=== PATIENT | female | born 1990 | race Caucasian/White ===

== ENCOUNTER 2018-07-05 10:04 | Outpatient (CLI) | payer BC ==
--- NOTE | 2018-07-05 09:55 | NUR ---
pt ambulated to WS per direct admit by . pt weighed, gowned and assisted to bed. vs taken. POC reviewed with pt and . states understanding.
[~2018-07-05 10:04] MED LIST: ALBU8.5H2 IH; BENZ200C25 PO; CEPH500C PO; ONDN4T PO; PRD5T PO; VALA100033 PO
[2018-07-05] MEDS ORDERED: ONDANSETRON 4 MG/2 ML (SDV) Z0FRAN IVP ONE (10:15)
[2018-07-05 10:30] VITALS: BP 135/96
[2018-07-05] MEDS: D5 LR IV SOLUTION 1,000 ML IV SCH ×2 (10:40→12:53)
--- NOTE | 2018-07-05 10:40 | NUR ---
#20g IV to Rt.wrist x2 attempts by this RN. site patent, secured with opsite. D5LR @ 500cc/hr infusing via IV pump.
--- NOTE | 2018-07-05 10:43 | NUR ---
emesis basin @ side. pt requesting sprite to drink. reports emesis on admission. ice chips given. Zofran 12mg IV given.
[2018-07-05 10:58] LABS: BASOPHILS % (AUTO) 0 % (0-10); EOSINOPHILS # (AUTO) 0.1 10^3/uL (0.0-0.3); EOSINOPHILS % (AUTO) 1 % (0-10); HEMATOCRIT 40 % (35-52); HEMOGLOBIN 13.6 G/DL (11.5-16.0); LYMPHOCYTES # (AUTO) 2.3 X 10^3 (1.0-4.0); LYMPHOCYTES % (AUTO) 22 % (12-44); MEAN CORPUSCULAR HEMOGLOBIN 30 PG (25-34); MEAN CORPUSCULAR HGB CONC 34 G/DL (32-36); MEAN CORPUSCULAR VOLUME 90 FL (80-99); MEAN PLATELET VOLUME 10.5 FL (7.4-10.4); MONOCYTES # (AUTO) 0.8 X 10^3 (0.0-1.0); MONOCYTES % (AUTO) 8 % (0-12); NEUTROPHILS % (AUTO) 68 % (42-75); PLATELET COUNT 226 10^3/uL (130-400); RED CELL DISTRIBUTION WIDTH 12.8 % (10.0-14.5); WHITE BLOOD COUNT 10.2 10^3/uL (4.3-11.0)
[2018-07-05 11:10] VITALS: BP 122/76
--- NOTE | 2018-07-05 11:16 | NUR ---
warm blanket given to pt. c/o pain @ IV site. will cont to monitor.
[2018-07-05 11:18] LABS: ALANINE AMINOTRANSFERASE 16 U/L (0-55); ALBUMIN 3.9 GM/DL (3.2-4.5); ALKALINE PHOSPHATASE 41 U/L (40-136); BILIRUBIN,TOTAL 0.4 MG/DL (0.1-1.0); BUN/CREATININE RATIO 12; CALCIUM 9.4 MG/DL (8.5-10.1); CARBON DIOXIDE 19 MMOL/L (21-32); CHLORIDE 108 MMOL/L (98-107); GFR ESTIMATED > 60; GLUCOSE 84 MG/DL (70-105); POTASSIUM 3.9 MMOL/L (3.6-5.0); SODIUM 136 MMOL/L (135-145); TOTAL PROTEIN 6.7 GM/DL (6.4-8.2)
--- NOTE | 2018-07-05 11:24 | NUR ---
was called. message left with office staff.
--- NOTE | 2018-07-05 12:00 | NUR ---
returned phone call. labs given. pt may dismiss to home when stable.
--- NOTE | 2018-07-05 12:47 | NUR ---
2nd bag of D5LR infusing via IV pump. pt reports "not as nauseated". will cont to monitor.
--- NOTE | 2018-07-05 13:50 | NUR ---
up to BR. 50% bland diet consumed.
[2018-07-05] MEDS ORDERED: PREN1TAB79 PO (13:54)
--- NOTE | 2018-07-05 14:08 | NUR ---
dismissal instructions given. instructed pt to eat small, frequent meals, and increase oral intake. follow up with as scheduled or prn. signature page signed, placed on chart. Addendum: 07/05/18 at 1436 by JOCELYNE VILLARREAL RN IV site [place]
--- NOTE | 2018-07-05 14:20 | NUR ---
pt ambulated to private vehicle with s/o @ side. pt stable with no sx's of distress noted.
== END 2018-07-05 14:20 | disposition home or self-care (01) ==
LOC: LDRP 10:04 → WSo 10:04
PROVIDERS: ATTEND Obstetrics & Gynecology
DX: O99.89 Other specified diseases and conditions complicating pregnancy, childbirth and the puerperium (principal); E86.0 Dehydration; Z3A.01 Less than 8 weeks gestation of pregnancy
CPT/HCPCS: 36415; 80053; 85025; 96361; 96374

== ENCOUNTER 2018-07-09 10:21 | Emergency (ER) | payer BC ==
[~2018-07-09] VITALS: Ht 154.9 cm; Wt 50.8 kg
[~2018-07-09 10:21] MED LIST changes: +PREN1TAB79 PO
--- OUTSIDE RECORDS SUMMARY | 2018-07-09 10:25 | XMS REPORT ---
Author MERCY Reyez [facility] eClinicalWorks Address Unknown Phone Unavailable Care Team Providers Care Wet Process Assistant Head Miller Name Role Phone MERCY OTERO CP Unavailable Allergies, Adverse Reactions, Alerts Substance Reaction Event Type N.K.D.A. Info Not Available Non Drug Allergy Problems Problem Type Condition Code Onset Dates Condition Status Assessment Mild intermittent asthma without complication J45.20 Active Problem Abdominal pain, unspecified site 789.00 Active Assessment Encounter for control pills maintenance Z30.41 Active Problem Encounter for control pills maintenance Z30.41 Active Problem Health examination in population survey V70.6 Active Problem Mild intermittent asthma without complication J45.20 Active Problem General counseling for prescription of oral contraceptives V25.01 Active Problem Unspecified backache 724.5 Active Problem control counseling V25.09 Active Problem Asthma 493.90 Active Medications Medication Code System Code Instructions Start Date End Date Status Dosage Microgestin 06/18 [facility] [id number] 1-20 MG-MCG Orally Once a day 1 tablet ProAir HFA [facility] [address]-05 108 (90 Base) MCG/ACT Inhalation 4 times a day 2 puffs as needed Procedures Procedure Coding System Code Date Preventive Care Est Pt. Age 18-39 CPT-4 85811 Mar 23, 2016 Vital Signs Date/Time: Mar 23, 2016 Cardiac Monitoring Heart Rate 80 bpm Weight 108 lbs Height 61 in BMI 20.40 Index Blood Pressure Diastolic 68 mmHg Blood Pressure Systolic 112 mmHg Results No Known Results Summary Purpose eClinicalWorks Submission
--- OUTSIDE RECORDS SUMMARY | 2018-07-09 10:25 | XMS REPORT ---
Author MERCY Reyez Organization eClinicalWorks Address Unknown Phone Unavailable Care Team Providers Care Rd Manager Name Role Phone MERCY OTERO CP Unavailable Allergies No Known Allergies Problems Problem Type Condition Code Onset Dates Condition Status Problem Abdominal pain, unspecified site 789.00 Active Problem Encounter for control pills maintenance Z30.41 Active Problem Health examination in population survey V70.6 Active Problem Mild intermittent asthma without complication J45.20 Active Problem General counseling for prescription of oral contraceptives V25.01 Active Problem Unspecified backache 724.5 Active Problem control counseling V25.09 Active Problem Asthma 493.90 Active Medications No Known Medications Results No Known Results Summary Purpose eClinicalWorks Submission
--- NOTE | 2018-07-09 11:18 | ED Cough/URI ---
General Chief Complaint: Cough/Cold/Flu Symptoms Stated Complaint: COUGHING UP BLOOD Nursing Triage Note: PT STATES SHE HAS BEEN COUGHING FOR 24H AND VOMITTING THE LAST TWO WEEKS R/T AND STATES AFTER COUGHING SHE HAS "SPIT UP BLOOD". Sepsis Screen: No Definite Risk Source: patient Exam Limitations: no limitations History of Present Illness Date Seen by Provider: Jul 09, 2018 Time Seen by Provider: 11:13 Initial Comments To ER with hemoptysis since this morning. She states that she has a cough that is productive of sputum and is sometimes blood-tinged. She denies any fevers or chills. She is , has had quite a bit of nausea and vomiting with this and saw Dr. Davis earlier last week and was admitted briefly to the hospital for some IV fluids. She is taking Dramamine and vitamin D 6 at home and has noticed some improvement in her nausea. However she's had a productive cough for a couple of days along. This morning when it became bloody. She denies any shortness of breath. She denies any swelling to either lower extremity. Timing/Duration: intermittent Severity/Quality: productive cough Associated Symptoms: cough Allergies and Home Medications Allergies Coded Allergies: No Known Drug Allergies (Unverified , 10/15/10) Home Medications Acetaminophen with Codeine 1 Each Tablet, 1 EACH PO Q8H PRN for COUGH Prescribed by: CONI OLMEDO on 07/09/18 1119 Cefuroxime Axetil 250 Mg Tablet, 250 MG PO BID Prescribed by: CONI OLMEDO on 07/09/18 1119 Vit W-Ca,Fe,FA(<1 mg) 1 Each Tablet, 1 EACH PO DAILY, (Reported) Patient Home Medication List Home Medication List Reviewed: Yes Review of Systems Review of Systems Constitutional: see HPI EENTM: see HPI Respiratory: see HPI, cough; No dyspnea on exertion; hemoptysis; No short of breath Cardiovascular: no symptoms reported Genitourinary: no symptoms reported Musculoskeletal: no symptoms reported Skin: no symptoms reported Psychiatric/Neurological: No Symptoms Reported Hematologic/Lymphatic: No Symptoms Reported Past Tevtshy-Pwoyoc-Nrzzdh Hx Patient Social History Alcohol Use: Denies Use Recreational Drug Use: No Smoking Status: Never a Smoker Recent Foreign Travel: No Contact w/Someone Who Travel: No Recent Infectious Disease Expo: No Recent Hopitalizations: No Seasonal Allergies Seasonal Allergies: No Past Medical History Surgeries: Yes Tonsillectomy Respiratory: Yes Asthma Cardiac: No Neurological: Yes (BELLS PALSY) : Yes Last Menstrual Period: May 18, 2018 Genitourinary: No Gastrointestinal: No Musculoskeletal: No Endocrine: No Cancer: No Psychosocial: No Integumentary: No Blood Disorders: No Physical Exam Vital Signs - First Documented 07/09/18 10:48 Temp 97.0 Pulse 88 Resp 17 B/P (MAP) 140/96 (111) O2 Delivery Room Air Capillary Refill : Less Than 3 Seconds Height: 5'1" Weight: 112lbs. oz. 50.229927pv; 18.14 BMI Method:Stated General Appearance: WD/WN, no apparent distress, other (her oxygen saturation is 100% on room air, her heart rate is 87. She denies any shortness of breath or swelling in either lower extremity. I do not have concerns of PE based on clinical exam/history.) HEENT: PERRL/EOMI, normal ENT inspection Respiratory: normal breath sounds, no respiratory distress, no accessory muscle use Cardiovascular: regular rate, rhythm, no murmur Gastrointestinal: normal bowel sounds, non tender, soft Extremities: normal range of motion, non-tender Neurologic/Psychiatric: alert, normal mood/affect, oriented x 3 Skin: normal color, warm/dry Progress/Results/Core Measures Suspected Sepsis Recent Fever Within 48 Hours: No Infection Criteria Present: Suspected New Infection New/Unexplained Altered Menta: No Sepsis Screen: No Definite Risk SIRS Temperature:97.0 Pulse: 88 Respiratory Rate: 17 Blood Pressure 140 /96 Mean: 111 Results/Orders My Orders Orders - CONI OLMEDO APRN Chest Pa/Lat (2 View) (07/09/18 11:12) Vital Signs/I&O 07/09/18 07/09/18 10:48 10:48 Temp 97.0 Pulse 88 Resp 17 B/P (MAP) 140/96 (111) O2 Delivery Room Air Capillary Refill : Less Than 3 Seconds Blood Pressure Mean: 111 Departure Impression Primary Impression: Bronchitis Disposition: 01 HOME, SELF-CARE Condition: Stable Departure-Patient Inst. Decision time for Depature: 11:17 Referrals: OREN LENTZ MD (PCP/Family) Primary Care Physician Patient Instructions: Acute Bronchitis, Adult (DC) Add. Discharge Instructions: 1. Antibiotics and cough medication as directed. Return to ER for any concerns. Follow-up with Dr. Ryan Lentz later this week for recheck. All discharge instructions reviewed with patient and/or family. Voiced understanding. Scripts Acetaminophen with Codeine (Tylenol with Codeine #3 Tablet) 1 Each Tablet 1 EACH PO Q8H PRN for COUGH, #10 TAB Prov: CONI OLMEDO STEWARD RACETRACK 07/09/18 Cefuroxime Axetil (Cefuroxime) 250 Mg Tablet 250 MG PO BID, #14 TAB Prov: CONI OLMEDO STEWARD RACETRACK 07/09/18 CONI OLMEDO APRN Jul 09, 2018 11:18
[2018-07-09] MEDS ORDERED: ACET-789 PO (11:19)
[2018-07-09] MEDS ORDERED: CEFU250T80 PO (11:19)
--- NOTE | 2018-07-09 11:57 | Diagnostic Imaging Report ---
INDICATION: Hemoptysis. FINDINGS: Lungs are clear. The heart and vessels normal. There is no effusion or pneumothorax. No free air beneath the diaphragms. Cardiomediastinal and hilar contour is normal. No chest wall abnormality. IMPRESSION: Negative. Dictated by: Dictated on workstation # [id number]
[2018-07-09 12:05] VITALS: BP 135/90
== END 2018-07-09 12:06 | disposition home or self-care (01) ==
LOC: EDUNIT# 10:21 → ER 10:22
DX: O99.519 Diseases of the respiratory system complicating pregnancy, unspecified trimester (principal); J45.909 Unspecified asthma, uncomplicated; O99.350 Diseases of the nervous system complicating pregnancy, unspecified trimester; G51.0 Bell's palsy; Z90.89 Acquired absence of other organs; Z3A.00 Weeks of gestation of pregnancy not specified
CPT/HCPCS: 71046

== ENCOUNTER 2018-12-03 10:16 | Emergency (ER) | payer BC, MEDICAID ==
[~2018-12-03] VITALS: Ht 154.9 cm; Wt 62.1 kg
[~2018-12-03 10:16] MED LIST changes: +ACET-789 PO; +CEFU250T80 PO
--- OUTSIDE RECORDS SUMMARY | 2018-12-03 10:20 | XMS REPORT ---
Author Author Migration, Doctor Organization [facility] Address Unknown Phone Unavailable Care Team Providers Care Veneer Clipper Helper Name Role Phone Migration, Doctor Unavailable Unavailable PROBLEMS Type Condition ICD9-CM Code [id number] Code Onset Dates Condition Status SNOMED Code Problem Abdominal pain, unspecified site 789.00 Active 36070610 Problem Unspecified backache 724.5 Active 116813107 Problem Encounter for control pills maintenance Z30.41 Active 636200427 Problem Mild intermittent asthma without complication J45.20 Active 441141424 Problem General counseling for prescription of oral contraceptives V25.01 Active 297732476169118 Problem Health examination in population survey V70.6 Active 065935941 Problem control counseling V25.09 Active 81483690 Problem Asthma 493.90 Active 915507712 ALLERGIES No Information ENCOUNTERS Encounter Location Date Diagnosis [place] [id number] [place] [address] Feb, Encounter for control pills maintenance Z30.41 and Mild intermittent asthma without complication J45.20 [place] [address] [place] [address] Feb, [facility] [id number] [place] [address] Dec, Health examination in population survey V70.6 ; control counseling V25.09 and Asthma 493.90 [facility] [id number] [place] [address] Nov, [place] [id number] [place] [address] 14 Aug, 2014 [facility] [id number] [place] [address] Aug, [facility] [id number] [place] [address] Jul, [facility] [place] [facility] [address] [id number] [place] [address] Jul, [facility] [place] [facility] [address] [id number] [place] [address] Jul, [facility] [place] [facility] [address] [id number] [place] [address] Jul, [facility] [place] [facility] [address] [id number] [place] [address] Jul, [facility] [place] [facility] [address] [id number] [place] [address] Jul, [facility] [place] [facility] [address] [id number] [place] [address] Jul, [facility] [place] [facility] [address] [id number] [place] [address] Jul, [facility] [place] [facility] [address] [id number] [place] [address] Jul, [facility] [place] [facility] [address] [id number] [place] [address] Jul, [facility] [place] [facility] [address] [id number] [place] [address] Jul, [facility] [place] [facility] [address] [id number] [place] [address] Jul, [facility] [place] [facility] [address] [id number] [place] [address] Jul, [facility] [place] [facility] [address] [id number] [place] [address] Dec, [facility] [place] [facility] [address] [id number] [place] [address] Dec, [facility] [place] [facility] [address] [id number] [place] [address] Apr, [facility] [place] [facility] [address] [id number] [place] [address] Apr, [facility] [address] [facility] [place] [id number] [place] [address] Apr, IMMUNIZATIONS No Known Immunizations SOCIAL HISTORY Never Assessed REASON FOR VISIT [facility] [place] VITAL SIGNS MEDICATIONS No Known Medications RESULTS No Results PROCEDURES No Known procedures INSTRUCTIONS MEDICATIONS ADMINISTERED No Known Medications MEDICAL (GENERAL) HISTORY Type Description Date Medical History Asthma Surgical History tonsillectomy 1999
--- OUTSIDE RECORDS SUMMARY | 2018-12-03 10:20 | XMS REPORT ---
Author Author Migration, Doctor Organization [facility] Address Unknown Phone Unavailable Care Team Providers Care Engineering Inspector Name Role Phone Migration, Doctor Unavailable Unavailable PROBLEMS Type Condition ICD9-CM Code [id number] Code Onset Dates Condition Status SNOMED Code Problem Abdominal pain, unspecified site 789.00 Active 97564644 Problem Unspecified backache 724.5 Active 180857466 Problem Encounter for control pills maintenance Z30.41 Active 626485345 Problem Mild intermittent asthma without complication J45.20 Active 917727214 Problem General counseling for prescription of oral contraceptives V25.01 Active 934577883861970 Problem Health examination in population survey V70.6 Active 773123885 Problem control counseling V25.09 Active 62856404 Problem Asthma 493.90 Active 623702308 ALLERGIES No Information ENCOUNTERS Encounter Location Date Diagnosis [place] [id number] [place] [address] Feb, Encounter for control pills maintenance Z30.41 and Mild intermittent asthma without complication J45.20 [place] [address] [place] [address] Feb, [facility] [id number] [place] [address] Dec, Health examination in population survey V70.6 ; control counseling V25.09 and Asthma 493.90 [facility] [address] [place] [address] Nov, [place] [id number] [place] [address] 14 Aug, 2014 [facility] [id number] [place] [address] Aug, [facility] [id number] [place] [address] Jul, [facility] [place] [facility] [address] [id number] [place] [address] Jul, [facility] [place] [facility] [address] [id number] [place] [address] Jul, [facility] [place] [facility] [address] [id number] [place] [address] Jul, [facility] [place] [facility] [address] [id number] [place] [address] Jul, [facility] [place] [facility] [address] [id number] [place] [address] Jul, [facility] [place] [facility] [address] [id number] [place] [address] Jul, [facility] [place] [facility] [address] [id number] [place] [address] Jul, [facility] [place] [facility] [address] [id number] [place] [address] Jul, [facility] [place] [facility] [address] [id number] [place] [address] Jul, [facility] [place] [facility] [address] [id number] [place] [address] Jul, [facility] [place] [facility] [address] [id number] [place] [address] Jul, [facility] [place] [facility] [address] [id number] [place] [address] Jul, [facility] [place] [facility] [address] [id number] [place] [address] Dec, [facility] [place] [facility] [address] [id number] [place] [address] Dec, [facility] [place] [facility] [address] [id number] [place] [address] Apr, [facility] [place] [facility] [address] [id number] [place] [address] Apr, [facility] [address] [facility] [id number] [place] [address] Apr, IMMUNIZATIONS No Known Immunizations SOCIAL HISTORY Never Assessed REASON FOR VISIT [facility] [place] OF CARE VITAL SIGNS MEDICATIONS Medication Instructions Dosage Frequency Start Date End Date Duration Status cyclobenzaprine 10 mg 1 tablet 1 time per day PRN at night for muscle spasm. Jul, Active Bentyl 20 mg 1 tablet by Oral route 3 times per day PRN Jul, Active Ibuprofen 600 mg take 1 tablet by Oral route 3 times per day with food PRN for pain Jul, Active RESULTS No Results PROCEDURES No Known procedures INSTRUCTIONS MEDICATIONS ADMINISTERED No Known Medications MEDICAL (GENERAL) HISTORY Type Description Date Medical History Asthma Surgical History tonsillectomy 1999
[2018-12-03 10:44] LABS: BILIRUBIN,URINE NEGATIVE (NEGATIVE); CLARITY,URINE SLIGHTLY CLOUDY; COLOR,URINE YELLOW; GLUCOSE, URINE (UA) NEGATIVE (NEGATIVE); KETONES,URINE NEGATIVE (NEGATIVE); NITRITE,URINE NEGATIVE (NEGATIVE); UROBILINOGEN,URINE NORMAL (NORMAL)
[2018-12-03 11:04] LABS: LEUKOCYTE ESTERASE ,URINE 2+ (NEGATIVE); PH,URINE 6 (5-9); PROTEIN,URINE 2+ (NEGATIVE)
[2018-12-03 11:12] LABS: BACTERIA,URINE FEW /HPF; SQUAMOUS EPITHELIAL CELL,UR 25-50 /HPF
--- NOTE | 2018-12-03 12:10 | ED Fall/Injury ---
General Chief Complaint: Trauma-Non Activation Stated Complaint: FALL - BACK PAIN - 27 WKS PREG Nursing Triage Note: Ambulatory to rm 9. Pt reports slipping down 2-3 wet steps on Tuesday. Pt reports falling on buttocks and slipping down on back. Pt c/o back pain and abdominal cramping, although pt reports cramping was present prior to fall. Pt reports taking tylenol for pain. Pt reports being 27 weeks . Pt reports normal movement. History of Present Illness Location Injury Occurred: home Allergies and Home Medications Allergies Coded Allergies: No Known Drug Allergies (Unverified , 10/15/10) Home Medications Acetaminophen with Codeine 1 Each Tablet, 1 EACH PO Q8H PRN for COUGH Prescribed by: CONI OLMEDO on 07/09/18 1119 Cefuroxime Axetil 250 Mg Tablet, 250 MG PO BID Prescribed by: CONI OLMEDO on 07/09/18 1119 Vit W-Ca,Fe,FA(<1 mg) 1 Each Tablet, 1 EACH PO DAILY, (Reported) Past Lifflug-Qtcjbg-Yrnqev Hx Patient Social History Alcohol Use: Denies Use Recreational Drug Use: No 2nd Hand Smoke Exposure: No Recent Foreign Travel: No Contact w/Someone Who Travel: No Recent Infectious Disease Expo: No Recent Hopitalizations: No Seasonal Allergies Seasonal Allergies: No Past Medical History Surgeries: Yes Tonsillectomy Respiratory: Yes Asthma Cardiac: No Neurological: Yes (BELLS PALSY) Genitourinary: No Gastrointestinal: No Musculoskeletal: No Endocrine: No Cancer: No Psychosocial: No Integumentary: No Blood Disorders: No Physical Exam Vital Signs Vital Signs - First Documented 12/03/18 10:18 Temp 97.9 Pulse 89 Resp 16 B/P (MAP) 126/90 (102) Pulse Ox 98 O2 Delivery Room Air Capillary Refill : Less Than 3 Seconds Height, Weight, BMI Height: 5'1.00" Weight: 137lbs. oz. 62.161153wv; 18.14 BMI Method:Stated Progress/Results/Core Measures Results/Orders Lab Results Laboratory Tests Test 12/03/18 10:55 Range/Units Urine Color YELLOW Urine Clarity SLIGHTLY CLOUDY Urine pH 6 5-9 Urine Specific Hewitt 1.020 1.016-1.022 Urine Protein 2+ H NEGATIVE Urine Glucose (UA) NEGATIVE NEGATIVE Urine Ketones NEGATIVE NEGATIVE Urine Nitrite NEGATIVE NEGATIVE Urine Bilirubin NEGATIVE NEGATIVE Urine Urobilinogen NORMAL NORMAL MG/DL Urine Leukocyte Esterase 2+ H NEGATIVE Urine RBC (Auto) 1+ H NEGATIVE Urine RBC NONE /HPF Urine WBC 5-10 H /HPF Urine Squamous Epithelial Cells 25-50 H /HPF Urine Crystals NONE /LPF Urine Bacteria FEW H /HPF Urine Casts NONE /LPF Urine Mucus SMALL H /LPF Urine Culture Indicated YES My Orders Orders - BERNADINE HARDY DO Heart Tones (12/03/18 10:27) Monitor-Rhythm Ecg Trace Only (12/03/18 10:27) Ua Culture If Indicated (12/03/18 10:27) Urine Culture (12/03/18 10:55) Vital Signs/I&O 12/03/18 10:18 Temp 97.9 Pulse 89 Resp 16 B/P (MAP) 126/90 (102) Pulse Ox 98 O2 Delivery Room Air Blood Pressure Mean: 102 Departure Impression Primary Impression: Fall down steps Additional Impressions: LOW BACK STRAIN AND CONTUSION 27 weeks gestation of UTI (urinary tract infection) in in second trimester Disposition: 01 HOME, SELF-CARE Condition: Stable Departure-Patient Inst. Referrals: ROEN LAU MD (PCP/Family) Primary Care Physician Patient Instructions: Coccyx Injury (DC), Lumbar Muscle Strain (DC), Urinary Tract Infection, Adult (DC) Add. Discharge Instructions: GO TO OB DEPT FOR FURTHER MONITORING DR. CALLES FOR FURTHER ORDERS All discharge instructions reviewed with patient and/or family. Voiced unders tanding. BERNADINE HARDY DO Dec 03, 2018 12:10
[2018-12-03 12:13] VITALS: BP 121/84
[2018-12-03] MEDS ORDERED: CALC-308 PO (12:43)
[2018-12-03] MEDS ORDERED: NITR-65 PO (13:11)
== END 2018-12-03 12:15 | disposition home or self-care (01) ==
LOC: EDUNIT# 10:16 → ER 10:16
DX: O9A.212 Injury, poisoning and certain other consequences of external causes complicating pregnancy, second trimester (principal); S39.012A Strain of muscle, fascia and tendon of lower back, initial encounter; O23.42 Unspecified infection of urinary tract in pregnancy, second trimester; O99.512 Diseases of the respiratory system complicating pregnancy, second trimester; J45.909 Unspecified asthma, uncomplicated; Z90.89 Acquired absence of other organs; Z3A.27 27 weeks gestation of pregnancy; W10.8XXA Fall (on) (from) other stairs and steps, initial encounter
CPT/HCPCS: 81000; 87088; 93041

== ENCOUNTER 2018-12-03 12:15 | Outpatient (CLI) | payer BC, MEDICAID ==
--- NOTE | 2018-12-03 12:23 | NUR ---
CALLIE IVORY presented to unit via ambulation from ED, accompanied by S.O., with c/o FALL on Tuesday. CALLIE IVORY weighed, gowned, voided, and to bed. EFHM and TOCO applied, VS taken. CALLIE IVORY oriented to bed controls, call light, TV, heat, and A/C controls.
--- NOTE | 2018-12-03 12:30 | NUR ---
Dr. Davis notified of pt arrival. previously notified that pt c/o fall on Tuesday and is now experiencing back pain. Pt was evaluated in ER and was cleared, but thought to have UTI. Order for reactive NST and Macrobid 100mg to take BID x7days.
[2018-12-03] MEDS ORDERED: CALC-308 PO (12:43)
--- NOTE | 2018-12-03 13:03 | NUR ---
DR. CALLES NOTIFIED OF REACTIVE NST. ORDERS FOR DISCHARGE.
[2018-12-03 13:11] VITALS: BP 121/71
[2018-12-03] MEDS ORDERED: NITR-65 PO (13:11)
--- NOTE | 2018-12-03 13:11 | NUR ---
EFM OFF. UP TO GET DRESSED.
--- NOTE | 2018-12-03 13:20 | NUR ---
DISCHARGE INSTRUCTIONS REVIEWED WITH PT AND S.O. AND COPY GIVEN. STATES UNDERSTANDING OF ALL INSTRUCTIONS AND NEED TO F/U SCHEDULED AND NEEDED. DISMISSED AMB FROM WS IN STABLE CONDITION ACC BY S.O.
--- NOTE | 2018-12-15 15:15 | Physician Query-Final Dx ---
WIL CARDONA 12/15/18 1515: Clinic Account Progress/Dx Physician Query: Please give diagnosis Need dx and weeks of gestation Date of Service Dec 03, 2018 at 12:15 WILFRED CALLES MD 12/15/18 1523: Clinic Account Progress/Dx DIAGNOSIS: Diagnosis 27 and 5/7 weeks gestation with decreased movement WIL CARDONA Dec 15, 2018 15:15 WILFRED CALLES MD Dec 15, 2018 15:23
== END 2018-12-03 13:20 | disposition home or self-care (01) ==
LOC: LDRP 12:15 → WSo 12:15
PROVIDERS: ATTEND Obstetrics & Gynecology
DX: O36.8120 Decreased fetal movements, second trimester, not applicable or unspecified (principal); Z3A.27 27 weeks gestation of pregnancy
CPT/HCPCS: 59025

== ENCOUNTER 2019-02-12 05:41 | Inpatient (IN) | payer BC, MEDICAID ==
[~2019-02-12] VITALS: Ht 61 cm; Wt 66.9 kg
[2019-02-12] VITALS (63 sets, daily range): BP systolic 94–158; BP diastolic 51–95
[~2019-02-12 05:41] MED LIST changes: +CALC-308 PO; +NITR-65 PO
--- NOTE | 2019-02-12 05:51 | NUR ---
CALLIE IVORY presented to unit via ambulation from ED, accompanied by , with c/o CONTRACTIONS, SPOTTING, NAUSEA. CALLIE IVORY weighed, gowned, voided, and to bed. EFHM and TOCO applied, VS taken. CALLIE IVORY oriented to bed controls, call light, TV, heat, and A/C controls.
[2019-02-12] MEDS ORDERED: OXYTOCIN/NORMAL SALINE 500 ML IV SCH ×2 (07:48→17:18)
[2019-02-12] MEDS: D5 LR IV SOLUTION 1,000 ML IV SCH ×2 (07:50→14:40)
--- NOTE | 2019-02-12 07:56 | History & Physical ---
History and Physical Date Seen by Provider: Feb 12, 2019 Time Seen by Provider: 07:54 Patient is a 28-year-old G1 white female with an EDC of 10 119 putting her 37- 5/7 weeks gestation. She presented with complaint of vaginal bleeding pressure and back pain. She is having contractions. Her cervix is changed since the initial admission exam. She is now 3 cm dilated 60 percent effaced -1 station vertex presentation with a bulging bag. Patient has had no complications with this her GBS culture after 35 weeks gestation was negative. Allergies are none Medications are vitamins Medical social and surgical histories are per the antepartum record HEENT exam is normal Neck is supple no lymphadenopathy no thyromegaly Abdomen is gravid soft nontender nondistended Extremities show no clubbing cyanosis. There is no Homans sign. Pelvic exam shows a cervix 3 cm dilated 60 percent effaced -1 station vertex presentation with a bulging bag. There is some bloody show. monitor shows a normal heart rate pattern with contractions about every 5 minutes. Assessment and plan term at 37 5/7 weeks' gestation in early labor. Patient is admitted now for labor management and anticipate vaginal delivery. 37-5/7 weeks' gestation in labor Allergies and Home Medications Allergies Coded Allergies: No Known Drug Allergies (Unverified , 10/15/10) Home Medications Calcium Carbonate 500 Mg Tab.chew, 500 MG PO DAILY, (Reported) Nitrofurantoin Monohyd/M-Cryst 100 Mg Capsule, 1 TAB PO BID Prescribed by: BISI TAPIA on 12/03/18 1311 Vit W-Ca,Fe,FA(<1 mg) 1 Each Tablet, 1 EACH PO DAILY, (Reported) Patient Home Medication List Home Medication List Reviewed: Yes WILFRED CALLES MD Feb 12, 2019 07:56
[2019-02-12 08:18] LABS: BASOPHILS % (AUTO) 0 % (0-10); EOSINOPHILS # (AUTO) 0.1 10^3/uL (0.0-0.3); EOSINOPHILS % (AUTO) 1 % (0-10); HEMATOCRIT 38 % (35-52); LYMPHOCYTES # (AUTO) 1.9 X 10^3 (1.0-4.0); LYMPHOCYTES % (AUTO) 15 % (12-44); MEAN CORPUSCULAR HEMOGLOBIN 31 PG (25-34); MEAN CORPUSCULAR HGB CONC 34 G/DL (32-36); MEAN CORPUSCULAR VOLUME 91 FL (80-99); MONOCYTES # (AUTO) 0.7 X 10^3 (0.0-1.0); MONOCYTES % (AUTO) 6 % (0-12); NEUTROPHILS # (AUTO) 9.6 X 10^3 (1.8-7.8); NEUTROPHILS % (AUTO) 78 % (42-75); PLATELET COUNT 166 10^3/uL (130-400); RED CELL DISTRIBUTION WIDTH 13.3 % (10.0-14.5); WHITE BLOOD COUNT 12.3 10^3/uL (4.3-11.0)
[2019-02-12] MEDS ORDERED: SUFENTA 0.6MCG/ML BUPIVA 0.125 100 ML ONE (09:35)
--- NOTE | 2019-02-12 10:43 | NUR ---
1043 Jameson PERALES CRNA here for epidural placement. Procedure explained, consent reviewed and signed by anesthesia. Questions answered to patient's satisfaction. Time out taken to verify correct patient/procedure. 1048 Patient up to side of bed, assisted into sitting position. 1050 Betadine prep done x3 and sterile drape applied. 1053 Local done, see anesthesia record. 1055 Test dose given, see anesthesia record for drug and dosage. 1057 Test dose #2 given, see anesthesia record for drug and dosage. Epidural catheter secured in place. Epidural placement complete. 1100 Assisted back into bed, monitors adjusted. Epidural dosed, see anesthesia record. Epidural of Sufenta/Bupvicaine @ 12cc/hr stated per pump. Patient tolerated procedure well.
[2019-02-12] MEDS ORDERED: LACTATED RINGERS 1,000 ML IV SCH (11:06)
[2019-02-12] MEDS ORDERED: METOCLOPRAMIDE INJ 10 MG/2 ML (REGLAN) IV PRN (11:15)
[2019-02-12] MEDS ORDERED: EPIDURAL (SUFENTA 0.6MCG/ML BUPIVA 0.125%) 100 ML BAG EPI SCH (11:15)
[2019-02-12] MEDS ORDERED: NALOXONE 0.4 MG/ML 1 ML (NARCAN) VIAL IV PRN ×2 (11:15)
[2019-02-12] MEDS ORDERED: diphenhydrAMINE 50 MG/ML INJ (BENADRYL) IV PRN (11:15)
[2019-02-12] MEDS ORDERED: ONDANSETRON 4 MG/2 ML (SDV) Z0FRAN IV PRN (11:15)
[2019-02-12] MEDS ORDERED: MINERAL OIL CONCENTRATE 99.9% 15 ML UDC ONE (16:07)
[2019-02-12] MEDS ORDERED: LIDOCAINE/EPI 2% 1:200,00 (XYLOCAINE) 10 ML VIAL ONE (16:07)
[2019-02-12] MEDS ORDERED: OXYC1TAB87 PO (17:25)
[2019-02-12] MEDS ORDERED: IBUP-1780 PO (17:25)
[2019-02-12] MEDS ORDERED: DOCU100C37 PO (17:25)
--- NOTE | 2019-02-12 17:25 | Discharge Instructions ---
Discharge Instructions Discharge Medications New, Converted or Re-Newed RX: RX on Chart Patient Instructions Return to The Hospital For: as directed Activity & Diet Discharge Diet: No Restrictions Activity as Tolerated: No Orders-Post D/C & Referrals Follow Up Appt: Call to make follow up appt. for patient in 4 weeks. Activity Per routine post vaginal delivery instructions. Please call in RX to patient pharmacy. Diet as tolerated Patient may shower or tub bathe as desired. WILFRED CALLES MD Feb 12, 2019 17:25
[2019-02-12] MEDS ORDERED: ONDANSETRON 4 MG/2 ML (SDV) Z0FRAN IVP PRN (17:30)
[2019-02-12] MEDS ORDERED: TETANUS,DIPTH,PERTUSS P/F (BOOSTRIX) 0.5 ML VIAL IM ONE (17:30)
[2019-02-12] MEDS ORDERED: MEASLES,MUMPS,RUBELLA 1 EA INJ SC ONE (17:30)
[2019-02-12] MEDS: BENZOCAINE/MENTHOL (DERMOPLAST) 56 ML CAN TP PRN (18:49)
[2019-02-12] MEDS: KETOROLAC 30 MG/ML VIAL IVP PRN (18:49)
--- NOTE | 2019-02-12 18:55 | NUR ---
REFER TO LABOR FLOW SHEET.
--- NOTE | 2019-02-12 21:14 | OPERATIVE REPORT ---
DATE OF SERVICE: 02/12/2019 The patient was delivered by term spontaneous vaginal delivery, a viable female with Apgars of 8 and 9 at 1 and 5 minutes respectively, weight of 8 pounds, time of 1651 and a cord blood gas that is pending. The was delivered over a first-degree perineal laceration under epidural analgesia. The labor and delivery nurse Nellie assisted in the delivery. The infant was bulb suctioned on delivery of the head and again on completion of delivery. The umbilical cord when pulseless was doubly clamped, the father cut the cord and the baby was passed to mom's abdomen. The was quickly pink, moved all extremities, had excellent tone and reflexes and heart rate over 100 from the time of delivery. The cervix, vagina, rectum, and perineum were examined and found intact, except for a first-degree perineal and posterior vaginal wall laceration of approximately 4 cm in length that was repaired under the epidural analgesia with a single suture of 3-0 Vicryl Rapide in the usual manner without difficulty to good hemostasis and good reapproximation. Sponge and needle counts were correct on completion of the delivery and the repair. Estimated blood loss was around 300 to 350 mL. The patient remained in the LDR for recovery. The baby remained with the mom. Job ID: [id number] DocumentID: [id number] Dictated Date: 02/12/2019 17:08:38 Shell Maker Lockstitch Date: 02/12/2019 21:13:37 Dictated By: WILFRED CALLES MD
[2019-02-12] MEDS: DOCUSATE SODIUM 100 MG (COLACE) CAP PO SCH (21:35)
[2019-02-12] MEDS: oxyCODONE/APAP 5/325MG (PERCOCET 5) TABLET PO PRN (21:36)
[2019-02-13] VITALS: BP 130/79
[2019-02-13 04:30] VITALS: BP 119/73
--- NOTE | 2019-02-13 06:42 | Anesthesia-Regional Post-Op ---
Regional Patient Condition Mental Status: Alert, Oriented x3 Circulation: Same as Pre-Op Headache: Absent Sensation: Full Recovery Motor Block: Absent Post Op Complications Complications None Follow Up Care/Instructions Patient Instructions None needed. Anesthesia/Patient Condition Patient is doing well, no complaints, stable vital signs, no apparent adverse anesthesia problems. No complications reported per nursing. RANDY COLINDRES CRNA Feb 13, 2019 06:42
[2019-02-13] MEDS: KETOROLAC 30 MG/ML VIAL IVP PRN ×2 (06:49)
[2019-02-13 08:45] VITALS: BP 134/85
--- NOTE | 2019-02-13 08:45 | NUR ---
A.M. ASSESSMENT COMPLETED. VSS. CARING FOR IN ROOM. ICE PACK GIVEN FOR SWOLLEN LABIA AND PERINEUM. GETTING READY TO SHOWER.
[2019-02-13] MEDS: DOCUSATE SODIUM 100 MG (COLACE) CAP PO SCH ×2 (08:50→20:02)
[2019-02-13] MEDS: oxyCODONE/APAP 5/325MG (PERCOCET 5) TABLET PO PRN ×3 (09:45→22:19)
--- NOTE | 2019-02-13 10:30 | NUR ---
WARM BLANKET TO LOWER BACK PER PT REQUEST.
[2019-02-13] MEDS ORDERED: IBUPROFEN 800 MG (MOTRIN) TAB PO ONE (11:43)
[2019-02-13] MEDS: IBUPROFEN 800 MG (MOTRIN) TAB PO SCH ×2 (12:09→18:38)
--- NOTE | 2019-02-13 12:30 | NUR ---
CONTINUES TO CARE FOR IN ROOM. VISITORS HERE TO SEE PT.
[2019-02-13 13:30] VITALS: BP 127/70
[2019-02-13] MEDS ORDERED: TETANUS,DIPTH,PERTUSS P/F (BOOSTRIX) 0.5 ML VIAL IM ONE (14:06)
[2019-02-13] MEDS ORDERED: MEASLES,MUMPS,RUBELLA 1 EA INJ ONE (14:06)
--- NOTE | 2019-02-13 14:36 | NUR ---
MMR GIVEN SUBQ IN LEFT UPPER ARM. TDAP GIVEN IM IN LEFT DELTOID PER PT REQUEST. SITE CLEAR.
--- NOTE | 2019-02-13 18:20 | NUR ---
EATING STORK MEAL.
[2019-02-13 20:00] VITALS: BP 138/86
[2019-02-14 03:28] VITALS: BP 134/88
[2019-02-14] MEDS: IBUPROFEN 800 MG (MOTRIN) TAB PO SCH ×2 (03:28→08:47)
[2019-02-14] MEDS: oxyCODONE/APAP 5/325MG (PERCOCET 5) TABLET PO PRN (07:21)
[2019-02-14 08:00] VITALS: BP 135/77
--- NOTE | 2019-02-14 08:00 | NUR ---
A.M. ASSESSMENT COMPLETED. VSS. PLANNING TO GO HOME TODAY. STATES PAIN MEDICATION EASED DISCOMFORT. EATING BREAKFAST.
[2019-02-14] MEDS: DOCUSATE SODIUM 100 MG (COLACE) CAP PO SCH (08:46)
--- NOTE | 2019-02-14 09:45 | NUR ---
DR. GREER IN TO SEE MOM REGARDING .
--- NOTE | 2019-02-14 12:15 | NUR ---
DISCHARGE INSTRUCTIONS REVIEWED WITH COPY TO PT. STATES UNDERSTANDING OF ALL INSTRUCTIONS AND NEED TO F/U SCHEDULED AND NEEDED.
[2019-02-14] MEDS: BENZOCAINE/MENTHOL (DERMOPLAST) 56 ML CAN TP PRN (12:20)
[2019-02-14 12:25] VITALS: BP 135/77
--- NOTE | 2019-02-14 12:25 | NUR ---
DISMISSED AMB FROM [facility] WITH INFANT IN STABLE CONDITION TO FAMILY CAR ACC BY SPOUSE AND BHAVANI HIGUERA RN.
--- NOTE | 2019-02-16 13:09 | Physician Query-Final Dx ---
SHERLEY KRISHNAMURTHY 02/16/19 1309: Final Diagnosis Give Final Diagnosis Please give Final Diagnosis WILFRED CALLES MD 02/17/19 0943: Final Diagnosis Give Final Diagnosis 37-5/7 weeks' gestation with spontaneous vaginal delivery SHERLEY KRISHNAMURTHY Feb 16, 2019 13:09 WILFRED CALLES MD Feb 17, 2019 09:43
[2019-02-17] MEDS ORDERED: IBUPROFEN 800 MG (MOTRIN) TAB PO SCH (18:00)
== END 2019-02-14 12:25 | disposition home or self-care (01) | DRG 807 ==
LOC: WSo 05:41 → LDRP 05:43 → WSo 07:29 → LDRP 07:30
PROVIDERS: ADMIT Obstetrics & Gynecology; ATTEND Obstetrics & Gynecology
PROC: 10E0XZZ Delivery of Products of Conception, External Approach (ICD-10-PCS; principal; 2019-02-12)
PROC: 0HQ9XZZ Repair Perineum Skin, External Approach (ICD-10-PCS; 2019-02-12)
PROC: 0UQGXZZ Repair Vagina, External Approach (ICD-10-PCS; 2019-02-12)
DX: O70.0 First degree perineal laceration during delivery (principal); Z3A.37 37 weeks gestation of pregnancy; Z37.0 Single live birth; Z23 Encounter for immunization
CPT/HCPCS: 36415; 85025; 86850; 86900; 86901; 90707; 90715; 99212

== ENCOUNTER 2019-02-16 13:37 | Outpatient (RCR) | payer BC, MEDICAID ==
[~2019-02-16 13:37] MED LIST changes: +DOCU100C37 PO; +IBUP-1780 PO; +OXYC1TAB87 PO
== END 2019-05-17 | disposition home or self-care (01) ==
LOC: WSo 13:37
PROVIDERS: ATTEND Nurse Practitioner Family
DX: Z39.1 Encounter for care and examination of lactating mother (principal); Z71.89 Other specified counseling
CPT/HCPCS: 99211

== ENCOUNTER → 2019-05-16 | Outpatient (CLI) | payer BC ==
--- NOTE | 2019-05-16 10:06 | Diagnostic Imaging Report ---
INDICATION: Pain. COMPARISON: None. FINDINGS: Three views of the right wrist demonstrate no acute fracture or dislocation. There are no focal osseous lesions. No avascular necrosis is seen. The visualized soft tissue structures are unremarkable. The pronator fat pad is not displaced. There are no radio opaque foreign bodies. IMPRESSION: 1. No acute fracture or dislocation in the right wrist. Dictated by: Dictated on workstation # [id number]
== END ==
LOC: RAD 09:37
PROVIDERS: ATTEND Nurse Practitioner Family
DX: M25.531 Pain in right wrist (principal)
CPT/HCPCS: 73110

== ENCOUNTER → 2021-07-01 | Outpatient (CLI) | payer BC ==
--- NOTE | 2021-07-01 11:50 | Diagnostic Imaging Report ---
INDICATION: Anatomy scan. TECHNIQUE: Multiple real-time grayscale images were obtained over the gravid uterus. COMPARISON: None FINDINGS: There is a single live fetus in transverse presentation, head to the maternal left. heart rate was recorded at 158 bpm. Placenta is anterior. No previa is identified. Amniotic fluid volume is normal. survey demonstrates kidneys, bladder and stomach to be unremarkable. brain is unremarkable. There is a four-chamber heart. There is a three-vessel cord normal insertion. spine is unremarkable. Biometrical measurements are as follows: Biparietal 4.73 cm, age 20 weeks 3 days. Head circumference 18.27 cm, age 20 weeks 5 days. Abdominal circumference 15.54 cm, age 20 weeks 5 days. Femur length 3.34 cm, age 20 weeks 4 days. Sonographic estimate age: 20 weeks 5 days. Sonographic estimated date of delivery: 11/13/2021. Estimated Weight: 364 gm (+/- 53 gm). LMP percentile: 63%. heart rate: 158 beats per minute. number: 1 of 1. IMPRESSION: Single live IUP 20 weeks 5 days gestational age. Estimated date of confinement sonographically is 11/13/2021. No complicating features are detected. Dictated by: Dictated on workstation # [id number]
== END ==
LOC: RAD 10:00
PROVIDERS: ATTEND Nurse Practitioner Women's Health
DX: Z34.02 Encounter for supervision of normal first pregnancy, second trimester (principal); Z3A.20 20 weeks gestation of pregnancy
CPT/HCPCS: 76805

== ENCOUNTER → 2021-10-27 | Outpatient (CLI) | payer BC | LOC: LABNPT 09:56 | PROVIDERS: ATTEND Obstetrics & Gynecology | DX: R80.9 Proteinuria, unspecified (principal) | CPT/HCPCS: 82570; 84156 ==

== ENCOUNTER → 2021-11-03 | Outpatient (CLI) | payer BC | LOC: LABNPT 09:51 | PROVIDERS: ATTEND Obstetrics & Gynecology | DX: O14.93 Unspecified pre-eclampsia, third trimester (principal); Z3A.00 Weeks of gestation of pregnancy not specified | CPT/HCPCS: 82570; 84156 ==

== ENCOUNTER 2021-11-09 07:09 | Inpatient (IN) | payer BC ==
[2021-11-09] VITALS (33 sets, daily range): BP systolic 108–172; BP diastolic 55–97
[~2021-11-09] VITALS: Ht 157.5 cm; Wt 63.9 kg
[2021-11-09 07:39] LABS: BASOPHILS % (AUTO) 1 % (0-10); EOSINOPHILS # (AUTO) 0.2 10^3/uL (0.0-0.3); EOSINOPHILS % (AUTO) 2 % (0-10); HEMATOCRIT 35 % (35-52); HEMOGLOBIN 11.7 g/dL (11.5-16.0); LYMPHOCYTES % (AUTO) 24 % (12-44); MEAN CORPUSCULAR HEMOGLOBIN 30 pg (25-34); MEAN CORPUSCULAR HGB CONC 33 g/dL (32-36); MEAN CORPUSCULAR VOLUME 91 fL (80-99); MEAN PLATELET VOLUME 12.4 fL (9.0-12.2); MONOCYTES # (AUTO) 0.6 10^3/uL (0.0-1.0); MONOCYTES % (AUTO) 7 % (0-12); NEUTROPHILS # (AUTO) 5.5 10^3/uL (1.8-7.8); NEUTROPHILS % (AUTO) 66 % (42-75); PLATELET COUNT 155 10^3/uL (130-400); WHITE BLOOD COUNT 8.4 10^3/uL (4.3-11.0)
[2021-11-09] MEDS ORDERED: OXYTOCIN PRE-MIX DRIP 500 ML IV SCH ×2 (07:45→13:00)
[2021-11-09] MEDS ORDERED: D5 LR IV SOLUTION 1,000 ML IV SCH (07:45)
[2021-11-09] MEDS ORDERED: fentaNYL 2 mcg/ml BUPIVA 0.125 100 ML ONE (07:53)
[2021-11-09] MEDS ORDERED: LACTATED RINGERS 1,000 ML IV ONE ×2 (07:53→08:45)
--- NOTE | 2021-11-09 08:12 | History & Physical ---
History and Physical Date Seen by Provider: Nov 09, 2021 Time Seen by Provider: 08:10 This patient is a 31-year-old 2 para 1 female who presents with spontaneous rupture membranes and early labor. She denies discharge other than rupture membranes or bleeding. Her GBS culture was negative. Her has been uncomplicated. Allergies are none Medications are vitamins Medical social and surgical histories are per the antepartum record HEENT exam is normal Neck is supple no lymphadenopathy no thyromegaly abdomen is gravid soft nontender nondistended Extremities show no clubbing cyanosis. There is no Homans' sign. Pelvic exam per the admitting nurse shows a cervix 3 cm dilated 50 to 60% effaced -1 station gross ROM with vertex presentation Assessment and plan 39-week gestation with spontaneous rupture membranes and early labor. Plan expectant management anticipate vaginal delivery 39 weeks with spontaneous rupture membranes and early labor Allergies and Home Medications Allergies Coded Allergies: No Known Drug Allergies (Unverified , 10/15/10) Patient Home Medication List Home Medication List Reviewed: Yes Calcium Carbonate (Calcium) 500 Mg Tab.chew, 500 MG PO DAILY, (Reported) Entered as Reported by: BISI TAPIA on 12/03/18 1243 Docusate Sodium (Docusate Sodium) 100 Mg Capsule, 100 MG PO BID Prescribed by: WILFRED PHELAN on 02/12/19 1725 Ibuprofen (Ibuprofen) 800 Mg Tablet, 800 MG PO Q6HR Prescribed by: WILFRED PHELAN on 02/12/19 1725 Nitrofurantoin Monohyd/M-Cryst (Macrobid 100 mg Capsule) 100 Mg Capsule, 1 TAB PO BID Prescribed by: BISI TAPIA on 12/03/18 1311 Oxycodone HCl/Acetaminophen (Percocet 5-325 mg Tablet) 1 Each Tablet, 1 TAB PO Q4H PRN for PAIN-MODERATE Prescribed by: WILFRED PHELAN on 02/12/19 1725 Vit W-Ca,Fe,FA(<1 mg) ( Vitamins) 1 Each Tablet, 1 EACH PO DAILY, (Reported) Entered as Reported by: JOCELYNE VILLARREAL on 07/05/18 1354 WILFRED CALLES MD Nov 09, 2021 08:12
[2021-11-09] MEDS ORDERED: fentaNYL INJ 100 MCG/2 ML AMP ONE (08:36)
[2021-11-09] MEDS ORDERED: BUPIVACAINE 0.25% 30 ML (SENSORCAINE) VIAL ONE (08:36)
[2021-11-09] MEDS ORDERED: ONDANSETRON 4 MG/2 ML (SDV) Z0FRAN IV PRN (08:45)
[2021-11-09] MEDS ORDERED: CATHETER FLUSH 10 ML SYR IV PRN (08:45)
[2021-11-09] MEDS ORDERED: NALOXONE 0.4 MG/ML 1 ML (NARCAN) VIAL IV PRN (08:45)
[2021-11-09] MEDS ORDERED: diphenhydrAMINE 50 MG/ML INJ (BENADRYL) IV PRN (08:45)
[2021-11-09] MEDS ORDERED: fentaNYL 2 mcg/ml BUPIVA 0.125 100 ML IV SCH (08:45)
[2021-11-09] MEDS ORDERED: ONDANSETRON 4 MG/2 ML (SDV) Z0FRAN ONE (09:17)
[2021-11-09] MEDS ORDERED: LIDOCAINE 1% INJ 20 ML VIAL ONE (11:30)
[2021-11-09] MEDS ORDERED: ONDANSETRON 4 MG/2 ML (SDV) Z0FRAN IVP PRN (13:00)
[2021-11-09] MEDS: KETOROLAC 30 MG/ML VIAL IVP SCH ×2 (14:08→20:10)
[2021-11-09] MEDS: oxyCODONE/APAP 5/325MG (PERCOCET 5) TABLET PO PRN ×3 (15:12→22:35)
[2021-11-09] MEDS: BENZOCAINE/MENTHOL (DERMOPLAST) 56 ML CAN TP PRN (15:26)
[2021-11-09] MEDS: DOCUSATE SODIUM 100 MG (COLACE) CAP PO SCH (20:10)
--- NOTE | 2021-11-09 22:29 | OPERATIVE REPORT ---
DATE OF SERVICE: 11/09/2021 DELIVERY NOTE The patient delivered by term spontaneous vaginal delivery a viable male with Apgars of 8 and 9 at 1 and 5 minutes respectively, weight 7 pounds 12 ounces. Cord blood pH is pending and a time of 11:48. The infant was delivered over first-degree perineal laceration under epidural analgesia. The infant was bulb suctioned on delivery of the head and again on completion of delivery. The umbilical cord was doubly clamped, father cut the cord, the baby was passed to mom's abdomen. Placenta delivered spontaneously Harp after cord bloods were obtained. The placenta was sent to pathology for permanent section. The cervix, vagina, rectum, and perineum were examined and found intact, except for a first-degree perineal laceration that was repaired with a single suture of 3-0 Rapide in the usual manner without difficulty with good hemostasis. Sponge and needle counts were correct on completion of delivery and repair. Blood loss was around 300 mL. The patient tolerated the delivery and the repair well and remained in the LDR for recovery. The baby remained with the mom. Job ID: [id number] DocumentID: [id number] Dictated Date: 11/09/2021 12:52:42 Tooth Grinder Date: 11/09/2021 22:29:19 Dictated By: WILFRED CALLES MD
[2021-11-10 01:11] VITALS: BP 141/92
[2021-11-10] MEDS: KETOROLAC 30 MG/ML VIAL IVP SCH ×2 (01:11→06:31)
[2021-11-10 04:11] VITALS: BP 141/82
[2021-11-10] MEDS: oxyCODONE/APAP 5/325MG (PERCOCET 5) TABLET PO PRN ×3 (05:17→12:30)
[2021-11-10] MEDS ORDERED: WITCH HAZEL(TUCKS) 40 EA JAR TOP PRN (07:00)
[2021-11-10] MEDS ORDERED: DIBUCAINE 1% OINTMENT 30 GM TUBE TOP PRN (07:00)
--- NOTE | 2021-11-10 08:26 | Progress Note ---
Standard Progress Note Progress Notes/Assess & Plan Date Seen by a Provider: Nov 10, 2021 Time Seen by a Provider: 08:25 Progress/Assessment & Plan This patient is without complaint. She is ambulating, voiding, tolerating oral intake well and has good pain control. Vital Signs Date Time Temp Pulse Resp B/P (MAP) Pulse Ox O2 Delivery O2 Flow Rate FiO2 11/10/21 04:11 36.0 82 18 141/82 (101) 97 Room Air 11/10/21 01:11 36.4 59 18 141/92 (108) 97 Room Air 11/09/21 20:20 70 18 151/70 (97) Room Air 11/09/21 20:10 36.7 73 18 159/69 (99) 97 Room Air 11/09/21 15:10 36.9 92 18 135/58 (83) Room Air 11/09/21 13:57 76 18 119/97 (104) Room Air 11/09/21 13:42 80 18 127/81 (96) Room Air 11/09/21 13:34 81 18 144/85 (104) Room Air 11/09/21 13:12 69 18 137/80 (99) Room Air 11/09/21 12:57 73 18 140/78 (98) Room Air 11/09/21 12:53 36.7 11/09/21 12:42 64 18 138/86 (103) Room Air 11/09/21 12:27 36.4 68 18 140/88 (105) Room Air 11/09/21 12:12 36.4 76 18 131/77 (95) Room Air 11/09/21 11:57 75 18 146/82 (103) Room Air 11/09/21 11:44 81 18 133/66 (88) Room Air 11/09/21 11:40 36.5 11/09/21 11:28 68 18 132/65 (87) 99 Room Air 11/09/21 11:12 73 18 126/81 (96) 100 Room Air 11/09/21 11:02 36.0 11/09/21 10:58 80 18 122/80 (94) 100 Room Air 11/09/21 10:42 64 18 114/58 (76) 100 Room Air 11/09/21 10:13 60 18 119/78 (92) 95 Room Air 11/09/21 09:57 61 18 115/59 (77) 97 Room Air 11/09/21 09:44 75 18 119/62 (81) 99 Room Air 11/09/21 09:30 63 18 110/55 (73) 97 Room Air 11/09/21 09:23 58 18 119/66 (83) 97 Room Air 11/09/21 09:19 65 18 108/58 (75) 97 Room Air 11/09/21 09:18 36.4 11/09/21 09:15 78 18 114/66 (82) 97 Room Air 11/09/21 09:07 86 18 122/72 (89) 97 Room Air 11/09/21 08:59 86 18 128/69 (88) 96 Room Air 11/09/21 08:55 71 18 144/82 (102) 97 Room Air 11/09/21 08:52 68 18 134/78 (96) Room Air 11/09/21 08:49 62 18 172/75 (107) 98 Room Air 11/09/21 08:46 71 18 155/73 (100) 99 Room Air 11/09/21 08:43 81 18 159/79 (105) Room Air 11/09/21 08:40 73 18 165/84 (111) 100 Room Air I & O 11/10/21 07:00 Intake Total 2400 ml Balance 2400 ml Vital signs are stable. Blood pressures are normalizing. Fundus is firm below the umbilicus and nontender. Extremities show no clubbing cyanosis. There is no Homans' sign. Pelvic exams deferred Assessment and plan day post vaginal delivery doing well plan is for routine convalescent care with discharge home at patient's request today or tomorrow as preferred Final Diagnosis 39-week spontaneous vaginal delivery WILFRED CALLES MD Nov 10, 2021 08:26
--- NOTE | 2021-11-10 08:28 | Discharge Inst-Surgical ---
Discharge Inst-Surgical Depart Medication/Instructions New, Converted or Re-Newed RX: Transmitted to Pharmacy Consults/Follow Up Patient Instructions: As directed Orders & Referrals Follow Up Appt: Call to make follow up appt. for patient in 4 weeks. Activity Per routine post vaginal delivery instructions. Prescriptions have been transmitted to patient's pharmacy from my office Diet as tolerated Patient may shower or tub bathe as desired. Activity Activity as Tolerated: No Diet Discharge Diet: No Restrictions WILFRED CALLES MD Nov 10, 2021 08:28
[2021-11-10 09:05] VITALS: BP 138/77
[2021-11-10] MEDS: DOCUSATE SODIUM 100 MG (COLACE) CAP PO SCH (09:07)
[2021-11-10 12:30] VITALS: BP 145/72
[2021-11-10] MEDS: BENZOCAINE/MENTHOL (DERMOPLAST) 56 ML CAN TP PRN (12:37)
[2021-11-10] MEDS ORDERED: IBUPROFEN 800 MG (MOTRIN) TAB PO SCH (13:00)
== END 2021-11-10 15:00 | disposition home or self-care (01) | DRG 807 ==
LOC: LDRP 07:09
PROVIDERS: ADMIT Obstetrics & Gynecology; ATTEND Obstetrics & Gynecology
PROC: 10E0XZZ Delivery of Products of Conception, External Approach (ICD-10-PCS; principal; 2021-11-09)
PROC: 0HQ9XZZ Repair Perineum Skin, External Approach (ICD-10-PCS; 2021-11-09)
DX: O70.0 First degree perineal laceration during delivery (principal); Z37.0 Single live birth; Z3A.39 39 weeks gestation of pregnancy
CPT/HCPCS: 36415; 85025; 86850; 86900; 86901